=== PATIENT | female | born 1990 | race Caucasian/White ===

== ENCOUNTER 2017-02-13 13:41 | Emergency (ER) | payer OTHER ==
[2017-02-13 18:49] LABS: BASO # 0.1 10_X3_uL (0.0-0.1); BASO % 0.6 % (0.1-1.2); EOS # 0.5 10_X3_uL (0.0-0.4); EOS % 4.5 % (0.7-5.8); GRAN # 6.3 10_X3_uL (1.6-6.1); GRAN % 61.7 % (34.0-71.1); HEMATOCRIT 43.4 % (34-45); HEMOGLOBIN 14.7 g/dL (11.2-15.7); LYMPH # 2.8 10_X3_uL (1.2-3.7); LYMPH % 27.8 % (19.3-51.7); MEAN CORPUSCULAR HEMOGLOBIN 30.1 pg (27.0-33.0); MEAN CORPUSCULAR HGB CONC 33.9 g/dL (32.0-36.0); MEAN CORPUSCULAR VOLUME 88.9 fL (79-95); MONO # 0.6 10_X3_uL (0.2-0.9); MONO % 5.4 % (4.7-12.5); PLATELET COUNT 392 x10_3/uL (182-369); RED BLOOD COUNT 4.88 x10_6/uL (3.9-5.2); RED CELL DISTRIBUTION WIDTH 14.3 % (11.7-14.4); WHITE BLOOD COUNT 10.2 x10_3/uL (4.0-10.0)
[2017-02-13 19:02] LABS: ALBUMIN 4.4 gm/dL (3.4-5.0); ALKALINE PHOSPHATASE 83 U/L (50-136); ALT/SGPT 21 U/L (3.5-33.9); AMYLASE 26 U/L (15.62-74.58); AST/SGOT 15 U/L (7.04-26.96); BILIRUBIN,TOTAL 0.25 mg/dL (0.0-1.0); BLOOD UREA NITROGEN 9 mg/dL (7-18); CALCIUM 9.4 mg/dL (8.7-10.7); CARBON DIOXIDE 25 mmol/L (21-32); CREATININE 0.8 mg/dL (0.6-1.3); GLUCOSE,RANDOM 97 mg/dL (70-99); LIPASE 17 U/L (6.75-60.75); POTASSIUM 3.8 mmol/L (3.5-5.1); SODIUM 141 mmol/L (136-145); TOTAL PROTEIN 7.7 gm/dL (6.4-8.2)
[2017-02-13 19:12] LABS: URINE BILIRUBIN NEGATIVE (NEGATIVE); URINE BLOOD NEGATIVE (NEGATIVE); URINE GLUCOSE (UA) NORMAL (NORMAL); URINE KETONE TRACE (NEGATIVE); URINE LEUKOCYTE ESTERASE TRACE (NEGATIVE); URINE NITRATE NEGATIVE (NEGATIVE); URINE PROTEIN NEGATIVE (NEGATIVE); UROBILINOGEN NORMAL mg/dL (<1.0)
[2017-02-13 19:43] LABS: URINE BACTERIA 1+ (NONE SEEN); URINE MUCUS TRACE; URINE RBC 0-5 /[HPF] (0-2); URINE SQUAMOUS EPITHELIAL CELL 0-10 /[HPF] (NONE SEEN); URINE WBC 0-5 /[HPF] (0-5)
== END 2017-02-13 21:43 | disposition short-term general hospital (02) ==
LOC: ER 13:41
PROVIDERS: Emergency Medicine
DX: R10.9 Unspecified abdominal pain (principal); I10 Essential (primary) hypertension; Z90.49 Acquired absence of other specified parts of digestive tract; F17.210 Nicotine dependence, cigarettes, uncomplicated; Z79.899 Other long term (current) drug therapy
CPT/HCPCS: 36415; 80053; 81001; 82150; 83690; 85025; 87086; 87186; 96361; 96374; 99070; 99285-25